=== PATIENT | female | born 1990 | race Caucasian/White ===

== ENCOUNTER 2020-07-16 21:47 | Emergency (ER) | payer MEDICAID ==
--- NOTE | 2020-07-16 22:08 | EDM.PDOC ---
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 Denies: Old Records History Limitations: Reports: Other (no old records) - History of Present Illness INITIAL COMMENTS - FREE TEXT/NARRATIVE: 30 yo female at 30 wks preg from [place] presents after she felt a gush of fluid per vagina. No bleeding. No cramping. 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 Constitutional: Reports: No Symptoms GI/Abdominal: Reports: No Symptoms : Reports: Other (fluid from vagina) Musculoskeletal: Reports: No Symptoms Skin: Reports: No Symptoms ED EXAM - Physical Exam Exam: See Below Exam Limited By: No Limitations General Appearance: Alert, WD/WN, No Apparent Distress Respiratory/Chest: No Respiratory Distress, Lungs Clear, Normal Breath Sounds, No Accessory Muscle Use Cardiovascular: Regular Rate, Rhythm, No Edema GI/Abdominal Exam: Soft, Non-Tender. No: Tender Heart Tones: Present Heart Tones per Min: 147 Movement: Active Extremities: Normal Inspection Neurological: Alert, Oriented, CN II-XII Intact, Normal Cognition, No Motor/Sensory Deficits Psychiatric: Normal Affect, Normal Mood Skin Exam: Warm, Dry, Intact, Normal Color, No Rash Course - Vital Signs Text/Narrative:: Patient does not want to wait for her test results, wants us to call her when it comes back. Wants to go home to [place]. - Orders/Labs/Meds Orders: Active Orders 24 hr Category Date Time Status AMNISURE RUPTURE MEMBRAN [BF] Stat Lab 07/16/20 22:03 Ordered - Re-Assessments/Exams Free Text/Narrative Re-Assessment/Exam: 07/16/20 22:27 No US available tonight here. Departure - Departure Time of Disposition: 22:25 Disposition: Home, Self-Care 01 Condition: Good Clinical Impression: Abnormal vaginal fluids, Third trimester - Discharge Information *PRESCRIPTION DRUG MONITORING PROGRAM REVIEWED*: No *COPY OF PRESCRIPTION DRUG MONITORING REPORT IN PATIENT DANIS: No Forms: ED Department Discharge Additional Instructions: If your Amniosure test is positive you should be seen tonight in [place]. If negative no treatment is needed. We will call you with the result. - My Orders Last 24 Hours: My Active Orders 07/16/20 22:03 AMNISURE RUPTURE MEMBRAN [BF] Stat - Assessment/Plan Last 24 Hours: My Active Orders 07/16/20 22:03 AMNISURE RUPTURE MEMBRAN [BF] Stat
== END 2020-07-16 22:32 | disposition home or self-care (01) ==
LOC: FB.ED 21:47
DX: O99.89 Other specified diseases and conditions complicating pregnancy, childbirth and the puerperium (principal); R87.9 Unspecified abnormal finding in specimens from female genital organs; Z88.5 Allergy status to narcotic agent; Z3A.30 30 weeks gestation of pregnancy
CPT/HCPCS: 84112; 99284